=== PATIENT | male | born 1975 | race Caucasian/White ===

== ENCOUNTER → 2018-01-23 13:44 | Outpatient (CLI) | payer BC ==
[2018-01-24 08:19] LABS: IMMUNOGLOBULIN A 184 mg/dL (90-386); IMMUNOGLOBULIN G 926 mg/dL (700-1600); IMMUNOGLOBULIN M 54 mg/dL (20-172)
[2018-01-28 03:11] LABS: IMMUNOGLOBULIN E 45 IU/mL (0-100)
== END | disposition home or self-care (01) ==
LOC: D.RT 13:44
PROVIDERS: Internal Medicine Pulmonary Disease
DX: J45.909 Unspecified asthma, uncomplicated (principal); J20.9 Acute bronchitis, unspecified